=== PATIENT | male | born 1955 | race Caucasian/White ===

== ENCOUNTER 2019-01-09 19:02 | Emergency (ER) | payer OTHER ==
[~2019-01-09] VITALS: Ht 172.7 cm; Wt 82.6 kg
[2019-01-09 19:12] VITALS: Ht 172.7 cm; Wt 82.6 kg
--- NOTE | 2019-01-09 20:44 | ERD ---
ER Documentation Chief Complaint Chief Complaint DIZZINESS X2DAYS HPI The patient is a 63-year-old male, presenting to the ER because of dizziness vomiting, complains of nausea but no vomiting, denies syncope, near syncope. He complains of blurred vision while he was driving home 2 days ago after spending a few hours jet skiing. He denies any trauma, eye pain, facial pain, neck pain, chest pain, dyspnea, abdominal pain, vomiting, dysuria, diarrhea. He smokes and drinks, denies illicit drug Past medical history: H/O syncope 4 years ago Past surgical history: None ROS All systems reviewed and are negative except as per history of present illness. Medications Home Meds Reported Medications Acetaminophen* (Acetaminophen*) 500 MG Extra Strength Tablet, 500 MG PO Q4H PRN for PAIN AND OR ELEVATED TEMP, TAB 01/09/19 Allergies Allergies: Coded Allergies: No Known Allergy (Unverified , 01/09/19) Physical Exam Vitals Vital Signs Date Temp Pulse Resp B/P (MAP) Pulse Ox O2 O2 Flow FiO2 Time Delivery Rate 01/09/19 98.0 74 20 111/83 98 Room Air 23:20 (92) 01/09/19 61 20 118/83 99 Room Air 22:45 (95) 01/09/19 75 19 107/90 100 Room Air 20:45 (96) 01/09/19 97.6 78 18 144/96 98 19:12 (112) Physical Exam Const: No acute distress. Head: Atraumatic. Eyes: Normal Conjunctiva. ENT: Normal External Ears, Nose and Mouth. Neck: Full range of motion. No meningismus. Resp: Clear to auscultation bilaterally. Cardio: Regular rate and rhythm. Abd: Soft, non distended, normal bowel sounds, non tender. Skin: No petechiae or rashes. Back: No midline or flank tenderness. Ext: Left hand with a small skin lesion at the dorsal lateral aspect Neur: Awake and alert. No focal deficit Psych: Normal Mood and Affect. Result Diagram: 01/09/19204501/09/192045 Results 24 hrs Laboratory Tests Test 01/09/19 20:46 01/09/19 21:12 White Blood Count 7.6 10^3/ul Red Blood Count 4.54 10^6/ul Hemoglobin 13.4 g/dl Hematocrit 40.4 % Mean Corpuscular Volume 89.0 fl Mean Corpuscular Hemoglobin 29.5 pg Mean Corpuscular Hemoglobin Concent 33.2 g/dl Red Cell Distribution Width 12.8 % Platelet Count 269 10^3/UL Mean Platelet Volume 9.3 fl Immature Granulocytes % 0.300 % Neutrophils % 51.1 % Lymphocytes % 33.0 % Monocytes % 10.3 % Eosinophils % 4.5 % Basophils % 0.8 % Nucleated Red Blood Cells % 0.0 /100WBC Immature Granulocytes # 0.020 10^3/ul Neutrophils # 3.9 10^3/ul Lymphocytes # 2.5 10^3/ul Monocytes # 0.8 10^3/ul Eosinophils # 0.3 10^3/ul Basophils # 0.1 10^3/ul Nucleated Red Blood Cells # 0.0 10^3/ul Sodium Level 140 mmol/L Potassium Level 4.0 mmol/L Chloride Level 107 mmol/L Carbon Dioxide Level 27 mmol/L Anion Gap 6 Blood Urea Nitrogen 27 mg/dl Creatinine 1.52 mg/dl Est Glomerular Filtrat Rate mL/min 47 mL/min Glucose Level 87 mg/dl Calcium Level 9.3 mg/dl Troponin I 0.102 ng/ml Urine Opiates Screen Negative Urine Barbiturates Negative Urine Amphetamines Screen Negative Urine Benzodiazepines Screen Negative Urine Cocaine Screen Negative Urine Cannabinoids Negative Ethyl Alcohol Level < 10.0 mg/dl Bedside Urine pH (LAB) 5.5 Bedside Urine Protein (LAB) Trace Bedside Urine Glucose (UA) Negative Bedside Urine Ketones (LAB) Negative Bedside Urine Blood Negative Bedside Urine Nitrite (LAB) Negative Bedside Urine Leukocyte Esterase (L Negative Current Medications Medications Dose Sig/Roland Start Time Status Last (Trade) Ordered Route PRN Stop Time Admin Dose Reason Admin Ondansetron 4 mg ONCE STAT 01/09/19 DC HCl (Zofran IV 21:19 Inj) 01/09/19 21:20 Procedures/[place] [id number] Radiology Main Line: [phone] DIAGNOSTIC IMAGING REPORT Patient: NINA BAKER : 1955 Age: 63 Sex: M MR #: [id number] DOS: 01/09/192055 Ordering MD: NINA BASHIR MD Location: E/R Room/Bed: PROCEDURE: CT Brain without contrast. CLINICAL INDICATION: Syncope. TECHNIQUE: A CT of the brain without contrast was performed utilizing axial sections from the skull base through the vertex. The patient was scanned without intravenous contrast enhancement. Sagittal and coronal reformatted images were obtained using the data from the axial images. Total exam DLP is 634.23 mGy-cm. CTDIvol is 37.7 mGy. One or more of the following dose reduction techniques were used: Automated exposure control, adjustment of the mA and/or kV according to patient size, use of iterative reconstruction technique. DICOM images are available. COMPARISON: None available FINDINGS: There is normal greenfield-white matter differentiation. The ventricles and cisterns are normal. There is no intracranial hemorrhage or space-occupying lesion. There is no skull fracture or lytic lesion. IMPRESSION: 1. Normal noncontrast CT scan of the brain. 2. No intracranial hemorrhage. RPTAT: QQ .Ney Pozo MD, MD Date Time Electronically viewed and signed by .Ney Pozo MD, MD on 01/09/2019 22:05 .R/ CC: NINA BASHIR MD [id number] [place] [id number] Radiology Main Line: [phone] DIAGNOSTIC IMAGING REPORT Patient: NINA BAKER : 1955 Age: 63 Sex: M MR #: [id number] DOS: 01/09/192055 Ordering MD: NINA BASHIR MD Location: E/R Room/Bed: PROCEDURE: XR Chest. CLINICAL INDICATION: Syncope. TECHNIQUE: Single frontal view. COMPARISON: None. FINDINGS: The lungs are clear. The heart size is normal. There is no pleural effusion. There is no pneumothorax. IMPRESSION: 1. Normal chest radiograph. RPTAT: QQ .Ney Pozo MD, MD Date Time Electronically viewed and signed by .Ney Pozo MD, MD on 01/09/2019 22:05 .R/ CC: NINA BASHIR MD [id number] EKG: Read by emergency physician Rate/Rhythm: Normal Sinus Rhythm 63 beats/min QRS, ST, T-waves: No ST elevation, no T inversion, RBBB Impression: Abnormal EKG MEDICAL MAKING DECISION: The patient is a 73-year-old male, presenting with acute dizziness of unclear etiology, is stable for outpatient follow-up The differential diagnoses considered include but are not limited to central causes such as cerebellar infarct, cerebellar hemorrhage, cerebellar tumor, acoustic neuroma, peripheral causes such as benign positional vertigo, labyrinthitis, medication, Meniere's disease. Departure Diagnosis: Primary Impression: Dizziness Additional Impressions: Anemia Renal insufficiency Condition: Good Comments The patient's blood pressure was elevated (>120/80) but appears stable without evidence of hypertension emergency or urgency. The patient was counseled about the risks of hypertension and urged to pursue outpatient monitoring and therapy within a week with their primary care physician. I discussed the findings with the patient. I advised the patient to follow-up with the primary physician in about 1-2 days reevaluation and referral to cardiology/neurology/ophthalmology, sooner if needed and return if any concern. Disclaimer: Inadvertent spelling and grammatical errors are likely due to EHR/dictation software use and do not reflect on the overall quality of patient care. Also, please note that the electronic time recorded on this note does not necessarily reflect the actual time of the patient encounter. NINA BASHIR MD Jan 09, 2019 20:44
[2019-01-09] MEDS ORDERED: ONDANSETRON 4 MG INJ IV STA (21:19)
[2019-01-09] MEDS ORDERED: ACET-141 PO (23:11)
[2019-01-09 23:20] VITALS: BP 111/83; PULSE 74; RESP 20
== END 2019-01-09 23:33 | disposition home or self-care (01) ==
LOC: E/R 19:02
DX: D64.9 Anemia, unspecified (principal); N28.9 Disorder of kidney and ureter, unspecified
CPT/HCPCS: 36415; 70450; 71045; 80048; 80307; 81003; 84484; 85025; 93005; Z7502